=== PATIENT | male | born 1945 | race Caucasian/White ===

== ENCOUNTER 2021-06-05 10:04 | Inpatient (IN) | payer MEDICARE ==
[2021-06-05 10:15] LABS: Glucose,Whole Blood 155 mg/dL (75-99)
[2021-06-05] MEDS ORDERED: SODIUM CHLORIDE 0.9% 1,000 ML IV STA (10:18)
--- NOTE | 2021-06-05 10:22 | ED ---
General Adult HPI - General Chief complaint: Neuro Symptoms/Deficit Stated complaint: trouble speaking & gathering thoughts Time Seen by Provider: 06/05/21 10:13 Source: patient, family Mode of arrival: wheelchair Limitations: no limitations - History of Present Illness Initial comments: Dictation was produced using [employer] dictation software. please excuse any grammatical, word or spelling errors. Chief Complaint: 76-year-old male with past medical history of diabetes and hypertension presents emergency department for strokelike symptoms History of Present Illness: Patient is 68-year-old male who is brought in by his sister. Patient lives at home by himself. He talks his son every single morning. This morning son called him at around 8:30 AM and patient was found to be confused, aphasic and dysarthric. Sister went over to his house and brought patient to the emergency department. Patient lives at home alone. It is vague when patient was last normal given that he has not spoken to anybody. Patient told that he sounds confused and having trouble speaking. Patient has no symptoms of stroke. The ROS documented in this emergency department record has been reviewed and confirmed by me. Those systems with pertinent positive or negative responses have been documented in the HPI. All other systems are other negative and/or noncontributory. PHYSICAL EXAM: General Impression: Alert and oriented x3, not in acute distress HEENT: Normocephalic atraumatic, extra-ocular movements intact, pupils equal and reactive to light bilaterally, mucous membranes moist. Cardiovascular: Heart regular rate and rhythm Chest: Able to complete full sentences, no retractions, no tachypnea Abdomen: abdomen soft, non-tender, non-distended, no organomegaly Musculoskeletal: Pulses present and equal in all extremities, no peripheral edema Motor: no focal deficits noted Neurological: CN II-XII grossly intact, no focal motor or sensory deficits noted, very minimally aphasic, slightly dysarthric no facial droop, NIH of 2 Skin: Intact with no visualized rashes Psych: Normal affect and mood ED course: 76-year-old male presents to the emergency Department with mild strokelike symptoms. It is vague when patient's last known normal was because patient lives by himself. It's a system that patient woke up with symptoms like this. I Assume that patient's last known normal was sometime yesterday prior to going to bed tonight. Signs upon arrival are within acceptable limits. Point of care blood glucose is normal. NIH of 2 for mild dysarthria and mild aphasia. No extremity deficits. Patient not a candidate for TPA given low NIH score. Nonetheless code stroke page. EKG interpretation: Ventricular rate 72, normal sinus rhythm, [place] interval 164, QRS 80, QTc 451. No [place] prolongation, no QTC prolongation, no ST or T-wave changes noted. Overall, this EKG is unremarkable Case discussed with Dr. Robertson who does not recommend TPA administration. Laboratory evaluation obtained. CBC, coag panel, metabolic panel is within acceptable limits. CT brain and CT angios of the head and neck shows no stenoses or acute abnormalities. Chest x-ray is nonacute. However radiologist reports there is evidence of a nodular opacity at the right upper lobe is indeterminant. Patient has no respiratory symptoms whatsoever. Patient reevaluated at bedside at 11:50 AM on a be stable medical condition. Patient given aspirin. He is agreeable to admission for consultation to neurology. Patient's NIH is still 12. However his symptoms have not progressed. Patient began discussing his symptoms over the last several months of syncope. He was told that he feels faint and sometimes passes after he urinates. Cardiology will be consulted for post-micturition syncope. - Related Data Home Medications Medication Instructions Recorded Confirmed Acarbose [Precose] 25 mg PO AC-TID 06/05/21 06/05/21 Midodrine [ProAmatine] 2.5 mg PO Q12H 06/05/21 06/05/21 Omeprazole [PriLOSEC] 20 mg PO DAILY PRN 06/05/21 06/05/21 Sertraline [Zoloft] 25 mg PO DAILY 06/05/21 06/05/21 Allergies Allergy/AdvReac Type Severity Reaction Status Date / Time No Known Allergies Allergy Verified 06/05/21 10:04 Review of Systems ROS Statement: Those systems with pertinent positive or pertinent negative responses have been documented in the HPI. ROS Other: All systems not noted in ROS Statement are negative. Past Medical History Past Medical History: Diabetes Mellitus Additional Past Medical History / Comment(s): hypotension Past Surgical History: No Surgical Hx Reported Past Psychological History: Depression Smoking Status: Current every day smoker Past Alcohol Use History: Occasional Past Drug Use History: None Reported General Exam Limitations: no limitations Course Vital Signs 06/05/21 06/05/21 06/05/21 10:04 10:20 10:35 Temperature 98 F Pulse Rate 74 66 73 Respiratory 18 18 18 Rate Blood Pressure 165/87 168/76 163/83 O2 Sat by Pulse 97 95 95 Oximetry 06/05/21 06/05/21 06/05/21 10:45 11:00 11:15 Temperature Pulse Rate 68 70 68 Respiratory 24 18 22 Rate Blood Pressure 168/86 147/87 154/89 O2 Sat by Pulse 94 L 93 L 94 L Oximetry 06/05/21 11:35 Temperature Pulse Rate 67 Respiratory 18 Rate Blood Pressure 166/90 O2 Sat by Pulse 98 Oximetry Medical Decision Making - Lab Data Result diagrams: 06/05/21 10:30 06/05/21 10:30 Lab Results 06/05/21 06/05/21 06/05/21 Range/Units 10:12 10:30 10:30 WBC 6.9 (3.8-10.6) k/uL RBC 4.93 (4.30-5.90) m/uL Hgb 15.8 (13.0-17.5) gm/dL Hct 44.9 (39.0-53.0) % MCV 91.1 (80.0-100.0) fL MCH 32.0 (25.0-35.0) pg MCHC 35.2 (31.0-37.0) g/dL RDW 12.5 (11.5-15.5) % Plt Count 163 (150-450) k/uL MPV 7.1 Neutrophils % 84 % Lymphocytes % 8 % Monocytes % 7 % Eosinophils % 1 % Basophils % 0 % Neutrophils # 5.7 (1.3-7.7) k/uL Lymphocytes # 0.5 L (1.0-4.8) k/uL Monocytes # 0.5 (0-1.0) k/uL Eosinophils # 0.1 (0-0.7) k/uL Basophils # 0.0 (0-0.2) k/uL PT 10.7 (9.0-12.0) sec INR 1.0 (<1.2) APTT 22.4 (22.0-30.0) sec Sodium (137-145) mmol/L Potassium (3.5-5.1) mmol/L Chloride (98-107) mmol/L Carbon Dioxide (22-30) mmol/L Anion Gap mmol/L BUN (9-20) mg/dL Creatinine (0.66-1.25) mg/dL Est GFR (CKD-EPI)AfAm (>60 ml/min/1.73 sqM) Est GFR (CKD-EPI)NonAf (>60 ml/min/1.73 sqM) Glucose (74-99) mg/dL POC Glucose (mg/dL) 155 H (75-99) mg/dL POC Glu Combatant Swimmer ID Torsten Benson Calcium (8.4-10.2) mg/dL Total Bilirubin (0.2-1.3) mg/dL AST (17-59) U/L ALT (4-49) U/L Alkaline Phosphatase (38-126) U/L Troponin I (0.000-0.034) ng/mL Total Protein (6.3-8.2) g/dL Albumin (3.5-5.0) g/dL 06/05/21 06/05/21 Range/Units 10:30 10:30 WBC (3.8-10.6) k/uL RBC (4.30-5.90) m/uL Hgb (13.0-17.5) gm/dL Hct (39.0-53.0) % MCV (80.0-100.0) fL MCH (25.0-35.0) pg MCHC (31.0-37.0) g/dL RDW (11.5-15.5) % Plt Count (150-450) k/uL MPV Neutrophils % % Lymphocytes % % Monocytes % % Eosinophils % % Basophils % % Neutrophils # (1.3-7.7) k/uL Lymphocytes # (1.0-4.8) k/uL Monocytes # (0-1.0) k/uL Eosinophils # (0-0.7) k/uL Basophils # (0-0.2) k/uL PT (9.0-12.0) sec INR (<1.2) APTT (22.0-30.0) sec Sodium 132 L (137-145) mmol/L Potassium 3.9 (3.5-5.1) mmol/L Chloride 100 (98-107) mmol/L Carbon Dioxide 23 (22-30) mmol/L Anion Gap 9 mmol/L BUN 13 (9-20) mg/dL Creatinine 0.88 (0.66-1.25) mg/dL Est GFR (CKD-EPI)AfAm >90 (>60 ml/min/1.73 sqM) Est GFR (CKD-EPI)NonAf 83 (>60 ml/min/1.73 sqM) Glucose 164 H (74-99) mg/dL POC Glucose (mg/dL) (75-99) mg/dL POC Glu Combatant Swimmer ID Calcium 9.0 (8.4-10.2) mg/dL Total Bilirubin 0.6 (0.2-1.3) mg/dL AST 29 (17-59) U/L ALT 35 (4-49) U/L Alkaline Phosphatase 68 (38-126) U/L Troponin I <0.012 (0.000-0.034) ng/mL Total Protein 6.5 (6.3-8.2) g/dL Albumin 4.0 (3.5-5.0) g/dL Critical Care Time Critical Care Time: Yes Total Critical Care Time: 33 Disposition Clinical Impression: Cerebrovascular accident (CVA) Disposition: ADMITTED IP TO THIS HOSP Condition: Fair Referrals: Raj Kaur MD [Primary Care Provider] - 1-2 days
--- NOTE | 2021-06-05 10:40 | CT ---
EXAMINATION TYPE: CT brain wo con for TPA DATE OF EXAM: 06/05/2021 COMPARISON: None HISTORY: CODE STROKE CT DLP: Not available at time of entry mGycm Unenhanced CT of the brain was performed. The ventricles, basal cisterns and sulci overlying the cerebral convexities demonstrate mild enlargem ent. There is no evidence for intracranial hemorrhage or sulcal effacement. There is decreased attenuation about the periventricular white matter and deep white matter of both c erebral hemispheres, compatible with chronic small vessel ischemia. Differential diagnosis does inclu de demyelination. No mass effects are seen.No midline shift. Osseous calvarium is intact. If symptoms persist consider MRI. IMPRESSION: 1. Age related atrophic and chronic small vessel ischemic change without acute intracranial process s een at this time.
[2021-06-05 10:43] LABS: Basophils % (A) 0 %; Eosinophils # (A) 0.1 k/uL (0-0.7); Eosinophils % (A) 1 %; HCT 44.9 % (39.0-53.0); HGB 15.8 gm/dL (13.0-17.5); Lymphocytes # (A) 0.5 k/uL (1.0-4.8); Lymphocytes % (A) 8 %; MCHC 35.2 g/dL (31.0-37.0); MCV 91.1 fL (80.0-100.0); Mean Platelet Volume 7.1; Monocytes # (A) 0.5 k/uL (0-1.0); Monocytes % (A) 7 %; Neutrophils # (A) 5.7 k/uL (1.3-7.7); Neutrophils % (A) 84 %; Platelet Count 163 k/uL (150-450); RBC 4.93 m/uL (4.30-5.90); RDW 12.5 % (11.5-15.5); WBC 6.9 k/uL (3.8-10.6)
--- NOTE | 2021-06-05 10:53 | CT ---
EXAMINATION TYPE: CT angio head neck DATE OF EXAM: 06/05/2021 COMPARISON: None HISTORY: Episode of inability to talk. CT DLP: 608.2 mGycm CONTRAST: Performed with IV Contrast, patient injected with 65 mL of Isovue 370. Combination Contrast CTA cervical carotids and [place] CTA cervical carotids with 3-D recons truction Contrast CTA of the cervical carotids was performed 3-D reconstruction imaging obtained at a separate workstation. Right carotid system: Mild plaque is seen of the right common carotid artery. There is mild plaque a lso noted at the carotid bulb and proximal ICA. No significant diameter reduction. ECA is patent. Right vertebral artery appears unremarkable. Left carotid system: Mild plaque is seen of the left common carotid artery. There is mild plaque als o noted at the carotid bulb and proximal ICA. No significant diameter reduction. ECA is patent. Lef t vertebral artery appears unremarkable. IMPRESSION: 1. No significant diameter reduction to account for the patient's symptoms. CTA [place] with 3-D reconstruction Contrast CTA of the [place] was performed 3-D reconstruction imaging obtained at a separate workstation. Vertebrobasilar system as well as intracranial portions of the internal carotid arteries and their ma juan carlos tributaries are patent. I do not see evidence for sizable aneurysm or vascular malformation. Pl ease note MRI provides greater sensitivity and specificity. Visualized brain appears grossly unremar kable. IMPRESSION: 1. No significant abnormality.
[2021-06-05 10:55] LABS: ALT 35 U/L (4-49); AST 29 U/L (17-59); African American GFR (CKD) >90 (>60 ml/min/1.73 sqM); Alkaline Phosphatase 68 U/L (38-126); Anion Gap 9 mmol/L; Blood Urea Nitrogen 13 mg/dL (9-20); Carbon Dioxide 23 mmol/L (22-30); Chloride 100 mmol/L (98-107); Glucose 164 mg/dL (74-99); Non-African American GFR(CKD) 83 (>60 ml/min/1.73 sqM); Potassium 3.9 mmol/L (3.5-5.1); Sodium 132 mmol/L (137-145); Total Bilirubin 0.6 mg/dL (0.2-1.3); Total Protein 6.5 g/dL (6.3-8.2)
[2021-06-05 11:00] LABS: Partial Thromboplastin Time 22.4 sec (22.0-30.0); Prothrombin Time 10.7 sec (9.0-12.0)
[2021-06-05] MEDS ORDERED: ASPIRIN 81 MG PO STA (11:47)
--- NOTE | 2021-06-05 11:50 | XR ---
EXAMINATION TYPE: XR chest 2V DATE OF EXAM: 06/05/2021 COMPARISON: None HISTORY: Altered mental status, difficulty speaking and gatherings TECHNIQUE: Frontal and lateral views of the chest are obtained. FINDINGS: Heart size is within normal limits. Overlying leads. Peribronchial cuffing. No pleural eff usion or pneumothorax. There are coarse interstitial markings. There is a nodular opacity at the righ t upper lobe. A CT may be helpful for further evaluation. Hyperaeration lungs and flattening of the d iaphragms suggestive of COPD. Degenerative changes of the thoracic spine. IMPRESSION: 1. COPD. Coarse interstitial markings may be chronic but prior comparison is not available. 2. There is nodular opacity at the right upper lobe which is indeterminate. A CT of the chest would b e helpful for evaluation. Underlying neoplasm is not excluded. 3. peribronchial cuffing. Consider bronchitis.
[2021-06-05] MEDS: lisinopriL 10 MG TAB PO SCH (14:11)
[2021-06-05] MEDS: SODIUM CHLORIDE 0.9% 1,000 ML IV SCH (14:44)
[2021-06-05] MEDS: ALPRAZolam 0.25 MG TAB PO PRN (19:08)
[2021-06-05] MEDS: ATORVASTATIN 40 MG TAB PO SCH (20:37)
[2021-06-05] MEDS: FAMOTIDINE 20 MG/2 ML VIAL IV SCH (20:37)
[2021-06-06] MEDS: ALPRAZolam 0.25 MG TAB PO PRN ×3 (02:07→20:29)
[2021-06-06 06:07] LABS: Glucose,Whole Blood 100 mg/dL (75-99)
[2021-06-06] MEDS: INSULIN ASPART (NovoLOG) 100 UNIT/ML VIAL SQ SCH ×4 (06:33→20:27)
--- NOTE | 2021-06-06 08:12 | P.CRDCN ---
History of Present Illness Consult date: 06/06/21 History of present illness: HISTORY OF PRESENT ILLNESS: This is a 76-year-old male with a past medical history significant for hypotension, GERD, and depression. 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 We have been asked to see the patient in consultation for syncope. Patient examined at the bedside. Patient states history morning he was in his usual state of health. He was on the phone with his son when suddenly he began having garbled speech. Patient denies having any weakness in any of his extremities. He denies any vision changes. Patient's son called the patient's daughter who came over to his house and brought him into the hospital for further evaluation. At the time of examination, the patient's speech is back to his baseline. Patient denies any chest pain or pressure. He denies shortness of breath. He denies any dizziness or lightheadedness. Patient gives a history of dizziness and lightheadedness on occasion over the past 6 months. He states this happens when he is going from a supine position to a standing position. He states about a month ago he had gotten out of bed and walk to the bathroom to urinate and he passed out and landed on the floor. Patient states he was hospitalized approximately 23 weeks ago at another facility for hypotension and was started on Midodrine at that time. Blood pressure this morning 131/69. Heart rate is in the 60s. EKG reveals sinus mechanism with no signs of acute ischemia Chest xray COPD. Coarse interstitial markings may be chronic but prior comparison is not available. Nodular opacities at the right upper lobe which is indeterminate. CT of the brain: Age-related atrophic and chronic small vessel ischemic changes without acute intracranial process Laboratory data: WBC 6.9. Hemoglobin 15.8. Platelet count 163. Sodium 132. Potassium 3.9. BUN 13. Creatinine 0.88. Troponin negative 1. Current home cardiac medications include Midodrine 2.5mg q12 hours REVIEW OF SYSTEMS: At the time of my exam: CONSTITUTIONAL: Denies fever or chills. HEENT: Denies blurred vision, vision changes, or eye pain. Denies hemoptysis CARDIOVASCULAR: Denies chest pain. Denies orthopnea. Denies PND. Denies palpitations RESPIRATORY: Denies shortness of breath. GASTROINTESTINAL: Denies abdominal pain. Denies nausea or vomiting. HEMATOLOGIC: Denies bleeding disorders. GENITOURINARY: Denies any blood in urine. SKIN: Denies pruitis. Denies rash. PHYSICAL EXAM: VITAL SIGNS: Reviewed. GENERAL: Well-developed in no acute distress. HEENT: Head is normocephalic. Pupils are equal, round. Sclerae anicteric. Mucous membranes of the mouth are moist. Neck supple. No JVD or thyromegaly LUNGS: Respirations even and unlabored. Lungs essentially clear to auscultation bilaterally. HEART: Regular rate and rhythm. S1 and S2 heard. ABDOMEN: Soft. Nondistended. Nontender. EXTREMITIES: Normal range of motion. No clubbing or cyanosis. Peripheral pulses intact. No lower extremity edema NEUROLOGIC: Awake and alert. Oriented x 3. ASSESSMENT: Garbled speech, possible TIA, resolved Syncope with occasional dizziness, x 6 months Hypotension, recently started on Midodrine GERD Depression PLAN: Obtain 2D echo to assess cardiac structure and function Resume Midodrine. Hold for SBP greater than 140. Obtain orthostatic blood pressures Continue to monitor telemetry Further recommendations pending patient's course Nurse practitioner note has been reviewed by physician. Signing provider agrees with the documented findings, assessment, and plan of care. Past Medical History Past Medical History: Diabetes Mellitus Additional Past Medical History / Comment(s): hypotension- couple weeks ago History of Any Multi-Drug Resistant Organisms: None Reported Past Surgical History: No Surgical Hx Reported Past Anesthesia/Blood Transfusion Reactions: No Reported Reaction Past Psychological History: Anxiety, Depression Additional Psychological History / Comment(s): zoloft last two weeks, doesn't think it is helping enough. lots of anxiety related to fear of falling. Smoking Status: Never smoker Past Alcohol Use History: None Reported Past Drug Use History: None Reported Medications and Allergies Home Medications Medication Instructions Recorded Confirmed Type Midodrine [ProAmatine] 2.5 mg PO Q12H 06/05/21 06/05/21 History Omeprazole [PriLOSEC] 20 mg PO DAILY PRN 06/05/21 06/05/21 History Sertraline [Zoloft] 25 mg PO DAILY 06/05/21 06/05/21 History Allergies Allergy/AdvReac Type Severity Reaction Status Date / Time No Known Allergies Allergy Verified 06/05/21 10:04 Physical Exam Vitals: Vital Signs Temp Pulse Pulse Resp BP BP Pulse Ox 06/06/21 04:00 97 F L 66 17 131/69 94 L 06/06/21 02:00 66 17 06/06/21 00:00 97.7 F 61 16 162/81 94 L 06/05/21 20:00 98.0 F 62 18 177/90 96 06/05/21 15:01 68 18 152/83 95 06/05/21 15:00 68 18 06/05/21 13:45 64 18 161/85 94 L 06/05/21 13:15 63 24 164/110 94 L 06/05/21 12:45 68 22 173/96 94 L 06/05/21 12:30 67 21 154/87 95 06/05/21 12:15 64 22 154/87 94 L 06/05/21 12:00 67 18 166/90 93 L 06/05/21 11:45 69 16 166/90 93 L 06/05/21 11:35 67 18 166/90 98 06/05/21 11:15 68 22 154/89 94 L 06/05/21 11:00 70 18 147/87 93 L 06/05/21 10:45 68 24 168/86 94 L 06/05/21 10:35 73 18 163/83 95 06/05/21 10:20 66 18 168/76 95 06/05/21 10:04 98 F 74 18 165/87 97 Intake and Output 06/05/21 06/06/21 06/06/21 22:59 06:59 14:59 Other: Voiding Method Toilet Toilet # Voids 1 2 Weight 85.5 kg 84.1 kg Results 06/05/21 10:30 06/05/21 10:30 Cardiac Enzymes 06/05/21 06/05/21 Range/Units 10:30 10:30 AST 29 (17-59) U/L Troponin I <0.012 (0.000-0.034) ng/mL Coagulation 06/05/21 Range/Units 10:30 PT 10.7 (9.0-12.0) sec APTT 22.4 (22.0-30.0) sec CBC 06/05/21 Range/Units 10:30 WBC 6.9 (3.8-10.6) k/uL RBC 4.93 (4.30-5.90) m/uL Hgb 15.8 (13.0-17.5) gm/dL Hct 44.9 (39.0-53.0) % Plt Count 163 (150-450) k/uL Comprehensive Metabolic Panel 06/05/21 Range/Units 10:30 Sodium 132 L (137-145) mmol/L Potassium 3.9 (3.5-5.1) mmol/L Chloride 100 (98-107) mmol/L Carbon Dioxide 23 (22-30) mmol/L BUN 13 (9-20) mg/dL Creatinine 0.88 (0.66-1.25) mg/dL Glucose 164 H (74-99) mg/dL Calcium 9.0 (8.4-10.2) mg/dL AST 29 (17-59) U/L ALT 35 (4-49) U/L Alkaline Phosphatase 68 (38-126) U/L Total Protein 6.5 (6.3-8.2) g/dL Albumin 4.0 (3.5-5.0) g/dL Current Medications Generic Name Dose Route Start Last Admin Trade Name Freq PRN Reason Stop Dose Admin Alprazolam 0.25 mg 06/05/21 18:15 06/06/21 02:07 Alprazolam 0.25 Mg Tab PO 0.25 mg TID PRN Administration Anxiety Atorvastatin Calcium 40 mg 06/05/21 21:00 06/05/21 20:37 Atorvastatin 40 Mg Tab PO 40 mg HS ANI Administration Famotidine 20 mg 06/05/21 21:00 06/05/21 20:37 Famotidine 20 Mg/2 Ml Vial IV Not Given Q12HR ANI Sodium Chloride 1,000 mls @ 20 mls/hr 06/05/21 12:00 06/05/21 14:44 Saline 0.9% IV Not Given .Q24H ANI Insulin Aspart 0 unit 06/06/21 07:30 06/06/21 06:33 Insulin Aspart (Novolog) 100 Unit/Ml Vial SQ Not Given ACHS ANI Protocol Intake and Output 06/05/21 06/06/21 06/06/21 22:59 06:59 14:59 Other: Voiding Method Toilet Toilet # Voids 1 2 Weight 85.5 kg 84.1 kg 06/05/21 10:30 06/05/21 10:30
[2021-06-06] MEDS: FAMOTIDINE 20 MG/2 ML VIAL IV SCH ×2 (09:39→20:26)
[2021-06-06] MEDS ORDERED: PANTOPRAZOLE 40 MG TABLET PO PRN (10:30)
--- NOTE | 2021-06-06 10:56 | ECHOF ---
Referral Reason:cva MEASUREMENTS -------- HEIGHT: 180.3 cm WEIGHT: 86.2 kg BP: RVIDd: 2.6 cm (< 3.3) IVSd: 1.0 cm (0.6 - 1.1) LVIDd: 4.1 cm (3.9 - 5.3) LVPWd: 1.2 cm (0.6 - 1.1) IVSs: 1.5 cm LVIDs: 1.7 cm LVPWs: 1.7 cm Ao Diam: 3.1 cm (2.0 - 3.7) AV Cusp: 2.1 cm (1.5 - 2.6) LA Diam: 3.0 cm (2.7 - 3.8) MV EXCURSION: 11.800 mm (> 18.000) MV EF SLOPE: 47 mm/s (70 - 150) EPSS: 0.6 cm MV E Pierre: 0.60 m/s MV DecT: 332 ms MV A Pierre: 0.88 m/s MV E/A Ratio: 0.69 AR PHT: 1968 ms RAP: 5.00 mmHg RVSP: 10.41 mmHg FINDINGS -------- This was a technically difficult study with suboptimal views. The left ventricular size is normal. Left ventricular wall thickness is normal. Overall left vent ricular systolic function is normal with, an EF between 55 - 60 %. The right ventricle is normal in size. The left atrial size is normal. The right atrial size is normal. Lumason used Unable to visualize the septum. The aortic valve is trileaflet and appears structurally normal. There is mild aortic regurgitation. The mitral valve is normal. The mitral valve leaflets are mildly thickened. Mild mitral regurgita tion is present. The tricuspid valve appears structurally normal. Mild tricuspid regurgitation present. Right vent ricular systolic pressure is normal at < 35 mmHg. There is no pulmonic regurgitation present. The aortic root size is normal. IVC Not well visulized. There is no pericardial effusion. CONCLUSIONS -------- 1. The left ventricular size is normal. 2. Left ventricular wall thickness is normal. 3. Overall left ventricular systolic function is normal with, an EF between 55 - 60 %. 4. There is mild aortic regurgitation. 5. The mitral valve leaflets are mildly thickened. 6. Mild mitral regurgitation is present. 7. Mild tricuspid regurgitation present. 8. There is no pericardial effusion. SAXOPHONE PLAYER: Cee Thurston RDCS
[2021-06-06] MEDS: MIDODRINE 5 MG TAB PO SCH ×3 (11:27→20:25)
--- NOTE | 2021-06-06 11:38 | P.HPIM ---
History of Present Illness H&P Date: 06/05/21 Chief Complaint: Dysarthria, This is a 76-year-old pleasant gentleman patient of Dr. Kaur, with underlying history of diabetes hypertension, coming in to emergency room secondary to acute strokelike symptoms. Patient lives alone at home independent, for which family members is in close by assistance, according to family members, the son called him at around 8:30 in the morning, and patient was found to have difficulty in speaking, has speech arrest. and was confused. The sister went to the patient's house, and was brought in by the family members to the emergency room. It is unknown when the last normal neurologic symptoms was of the patient, patient denies any headache, no head trauma, no cough, no fever no chills, patient does not drink alcohol, no new medication changes by PCP. apparently he had a syncopal event 2.5 wks ago, at that time bp was 65/35 standing, his pcp started him on midodrin. pt has hyperglycemia, was suppose to have started on acarbose but did not get to start it, pt refused. pateint was not on routine asa at home, not on statin, patient quit statin long time ago He was seen in the emergency room with code stroke, it was discussed with neurology, Dr. Robertson with the ER physician, who does not recommend TPA administration. CT of the brain and CTA of the neck was done, has mild plaques on bilateral, and and internal carotid artery, patent left vertebral artery, no significant diameter reduction to account for patient's symptoms CT of the brain shows chronic small vessel ischemia without any acute changes. NIH score was 2 patient is admitted, consult PT OT, neurology, pt was seen in the er myself, now with spontaneous rapid speech, no dysarrthria has memory loss short term, and no diplopia or headache, no gross motor abnormalities, no seizure history as per patient, he has lowering of blood pressure whenever he eats, but he did not really realize that is related to standing position rather than full. There is no diarrhea, no stool or urine incontinence, Review of Systems Constitutional: Reports as per HPI, Denies anorexia, Denies chills, Denies chronic headaches, Denies chronic pain, Denies daytime sleepiness, Denies fatigue, Denies fever, Denies lethargy, Denies malaise, Denies night sweats, Denies poor appetite, Denies sweats, Denies weakness, Denies weight gain, Denies weight loss Ears, nose, mouth and throat: Reports as per HPI, Denies ant. neck pain, Denies bleeding gums, Denies dental pain, Denies dysphagia, Denies epistaxis, Denies headache, Denies hoarseness, Denies mouth pain, Denies nasal congestion, Denies nasal discharge, Denies neck fullness/pressure, Denies neck lump, Denies nose pain, Denies odynophagia, Denies post-nasal drip, Denies sinus pain, Denies sinus pressure, Denies swelling in mouth, Denies swelling in throat, Denies sore throat, Denies vertigo, Denies voice changes Cardiovascular: Reports as per HPI, Denies chest pain, Denies claudication, Denies decreased exercise tolerance, Denies dyspnea on exertion, Denies edema, Denies high blood pressure, Denies irregular heart beat, Denies leg edema, Denies lightheadedness, Denies orthopnea, Denies palpitations, Denies paroxysmal nocturnal dyspnea, Denies phlebitis, Denies rapid heart beat, Denies shortness of breath, Denies syncope Respiratory: Reports as per HPI, Denies congestion, Denies cough, Denies cough with sputum, Denies dyspnea, Denies excessive sputum, Denies hemoptysis, Denies home oxygen, Denies pain, Denies pain on inspiration, Denies pleurisy, Denies respiratory infections, Denies sleep apnea, Denies snoring, Denies wheezing Gastrointestinal: Reports as per HPI, Denies coffee ground emesis, Denies diarrhea, Denies dyspepsia, Denies early satiety, Denies hematemesis, Denies hematochezia, Denies indigestion Genitourinary: Reports as per HPI, Denies hematuria, Denies incontinence, Denies kidney stones, Denies nocturia, Denies urinary frequency, Denies urinary hesitancy Musculoskeletal: Reports as per HPI, Denies arm numbness/tingling, Denies gait dysfunction, Denies limitation of motion, Denies muscle weakness Integumentary: Reports as per HPI Neurological: Reports as per HPI, Reports aphasia, Reports confusion, Reports memory loss Psychiatric: Reports confusion, Reports disorientation, Denies insomnia, Denies mood swings, Denies sleep disturbances Endocrine: Denies excessive sweating, Denies excessive thirst, Denies flushing, Denies high blood sugars, Denies low blood sugars, Denies nocturia Hematologic/Lymphatic: Reports as per HPI, Denies easy bleeding, Denies easy br uising, Denies lymphadenopathy, Denies lymphedema, Denies thrombophilia Allergic/Immunologic: Reports as per HPI, Denies allergic rhinitis, Denies anaphylaxis, Denies angioedema, Denies gluten intolerance, Denies persistent infections, Denies seasonal allergies, Denies urticaria, Denies wheezing Past Medical History Past Medical History: Diabetes Mellitus Additional Past Medical History / Comment(s): hypotension Past Surgical History: No Surgical Hx Reported Past Psychological History: Depression Smoking Status: Current every day smoker Past Alcohol Use History: Occasional Past Drug Use History: None Reported Medications and Allergies Home Medications Medication Instructions Recorded Confirmed Type Midodrine [ProAmatine] 2.5 mg PO Q12H 06/05/21 06/05/21 History Omeprazole [PriLOSEC] 20 mg PO DAILY PRN 06/05/21 06/05/21 History Sertraline [Zoloft] 25 mg PO DAILY 06/05/21 06/05/21 History Allergies Allergy/AdvReac Type Severity Reaction Status Date / Time No Known Allergies Allergy Verified 06/05/21 10:04 Physical Exam Vitals: Vital Signs Temp Pulse Resp BP Pulse Ox 06/05/21 11:35 67 18 166/90 98 06/05/21 11:15 68 22 154/89 94 L 06/05/21 11:00 70 18 147/87 93 L 06/05/21 10:45 68 24 168/86 94 L 06/05/21 10:35 73 18 163/83 95 06/05/21 10:20 66 18 168/76 95 06/05/21 10:04 98 F 74 18 165/87 97 Intake and Output 06/04/21 06/05/21 06/05/21 22:59 06:59 14:59 Other: Weight 86.183 kg - Constitutional General appearance: cooperative, no acute distress - EENT Eyes: anicteric sclerae, EOMI, PERRLA - Neck Neck: normal ROM - Respiratory Respiratory: bilateral: CTA, negative: diminished, dullness, rales - Cardiovascular Rhythm: regular Heart sounds: normal: S1, S2 Abnormal Heart Sounds: no systolic murmur, no diastolic murmur, no rub, no S3 Gallop, no S4 Gallop, no click, no other - Gastrointestinal General gastrointestinal: normal bowel sounds, soft - Integumentary Integumentary: decreased turgor, normal - Neurologic Neurologic: CNII-XII intact, focal deficits (none) - Musculoskeletal Musculoskeletal: gait normal, strength equal bilaterally - Psychiatric Psychiatric: A&O x's 3, appropriate affect, intact judgment & insight Results CBC & Chem 7: 06/05/21 10:30 06/05/21 10:30 Labs: Abnormal Lab Results - Last 24 Hours (Table) 06/05/21 06/05/21 06/05/21 Range/Units 10:12 10:30 10:30 Lymphocytes # 0.5 L (1.0-4.8) k/uL Sodium 132 L (137-145) mmol/L Glucose 164 H (74-99) mg/dL POC Glucose (mg/dL) 155 H (75-99) mg/dL Assessment and Plan Plan: 1 Acute dysarthria with confusion disorientation, suspect acute neurologic event, TIA, IND against CVA, patient will be seen by neurology, aspirin, might need SILVIA for cryptogenic stroke,, schedule for MRI of the brain, CTA neck carotids, negative for hemodynamically significant stenosis start cholesterol, Lipitor 40, aspirin 325 mg daily, and lipid panel start low-dose chad, this Li sinopril 10 mg needs to leave blood pressure on the antihypertensive site to protect neurovascular circulation, 2. Neurocardiogenic syncope without anomic dysfunction, with significant blood pressure dropped during standing, causing a recent syncope 2 weeks ago. Patient increased stool Midodrine 10 mg 3 times a day pre-meals, consult cardiology, for full workup, neurology workup, to evaluate for Parkinson's, need telemetry monitoring post discharge, 4 at her today event, against a loop recorder, for syncope with bradycardia arrhythmia sick sinus syndrome against pauses 3. Diabetes mellitus on acarbose 25 3 times a day apparently patient had quit this, as he refused to take the medication 4. Dysthymia on Zoloft 5. Current tobacco use 6. Hypertension, not on any Chad inhibition, has history of hypertension we will start low dose chad check for lipid panel n 8 impaired balance and gait, with fear of falling, start PT OT neurology workup, to evaluate for Parkinson's gait abnormality 7. Dysthymia on Zoloft
[2021-06-06 12:28] LABS: Glucose,Whole Blood 96 mg/dL (75-99)
[2021-06-06] MEDS: SERTRALINE 25 MG TAB PO SCH (12:42)
[2021-06-06] MEDS: PIOGLITAZONE 15 MG TAB PO SCH (12:43)
--- NOTE | 2021-06-06 12:51 | P.CNNES ---
History of Present Illness Consult date: 06/06/21 Requesting physician: Speedy Yates Reason for Consult: stroke symptoms History of Present Illness: This is a 76-year-old gentleman with medical history of hypotension, GERD and depression who presented emergency department on 06/05/2021 for strokelike symptoms. On 06/05/2021 patient called his son around 8:30 in the morning and per patient he had difficulty getting his words out. He said that he knew what he wanted to say but just had difficulty getting out. He denies any slurring of the speech at the presentation. Denies of any focal weakness, numbness/tingling, visual disturbance, difficulty swallowing. He denies of any headaches at that time. Denies of any fever. He denies of any strokelike symptoms in the past. Per the ED note, the son felt like the patient was confused, garbled speech while talking to him on phone. The patient lives by himself. His sister came and too him to the hospital. Patient felt his symptoms lasted for close to 2 hours. Again he denies of any stroke in the past. He denies of tobacco use and said in the past he used to drink alcohol but stopped years ago. Patient stated about a month ago he passed out when the he got out of bed to walk to the bathroom to urinate and landed on the floor. He was hospitalized for 2-3 weeks at a different facility for hypotension and was started on Midodrine at that time. He was hospitalized at [facility]. Patient denies of seizure in past. Patient home medication includes midodrine 2.5 mg every 12 hours, omeprazole and Zoloft. Some of the workup in the hospital consisted of: Initial vital signs: Blood pressure of 155/87, heart rate of 74, respiratory of 18, temperature of 98.0 Fahrenheit and pulse ox of 97% at room air. Patient had orthostatic vitals and the patient the supine blood pressure is 161/78, sitting is 159/83 and standing is 87/59. His orthostatics are positive for the orthostatic hypotension. CT of the head is reported as age-related atrophic and chronic small vessel ischemic change without acute intracranial process seen at this time. CT angiography of the head and neck was reported as no significant abnormality. EKG is reported as normal sinus rhythm. Normal EKG. CBC with differential is unremarkable. While chemistry panel the POC glucose is 1 5540 slowly elevated sodium is 1:30 which is slightly low otherwise the rest of the chemistry panel is unremarkable. Stroke code was activated and the patient NIH was 1-2 (mild dysarthria and aphasia) and per the ED note it has not progressed. And the the stroke attending Dr. Waller did not recommend that TPA. Review of Systems Review of system: The 12 point system was reviewed and apparent positive and negative per HPI. Past Medical History Past Medical History: Diabetes Mellitus Additional Past Medical History / Comment(s): hypotension- couple weeks ago History of Any Multi-Drug Resistant Organisms: None Reported Past Surgical History: No Surgical Hx Reported Past Anesthesia/Blood Transfusion Reactions: No Reported Reaction Past Psychological History: Anxiety, Depression Additional Psychological History / Comment(s): zoloft last two weeks, doesn't think it is helping enough. lots of anxiety related to fear of falling. Smoking Status: Never smoker Past Alcohol Use History: None Reported Past Drug Use History: None Reported Medications and Allergies Home Medications Medication Instructions Recorded Confirmed Type Midodrine [ProAmatine] 2.5 mg PO Q12H 06/05/21 06/05/21 History Omeprazole [PriLOSEC] 20 mg PO DAILY PRN 06/05/21 06/05/21 History Sertraline [Zoloft] 25 mg PO DAILY 06/05/21 06/05/21 History Allergies Allergy/AdvReac Type Severity Reaction Status Date / Time No Known Allergies Allergy Verified 06/05/21 10:04 Physical Examination - Vital Signs Vital Signs: Vital Signs Temp Pulse Pulse Resp BP BP Pulse Ox 06/06/21 09:09 94 L 06/06/21 08:00 97.5 F L 59 L 17 129/70 94 L 06/06/21 04:00 97 F L 66 17 131/69 94 L 06/06/21 02:00 66 17 06/06/21 00:00 97.7 F 61 16 162/81 94 L 06/05/21 20:00 98.0 F 62 18 177/90 96 06/05/21 15:01 68 18 152/83 95 06/05/21 15:00 68 18 06/05/21 13:45 64 18 161/85 94 L 06/05/21 13:15 63 24 164/110 94 L 06/05/21 12:45 68 22 173/96 94 L 06/05/21 12:30 67 21 154/87 95 06/05/21 12:15 64 22 154/87 94 L 06/05/21 12:00 67 18 166/90 93 L 06/05/21 11:45 69 16 166/90 93 L 06/05/21 11:35 67 18 166/90 98 06/05/21 11:15 68 22 154/89 94 L 06/05/21 11:00 70 18 147/87 93 L Intake and Output 06/05/21 06/06/21 06/06/21 22:59 06:59 14:59 Intake Total 180 Balance 180 Intake: Oral 180 Other: Voiding Method Toilet Toilet # Voids 1 2 Weight 85.5 kg 84.1 kg GENERAL: The patient is lying in bed and is not in acute distress. CHEST: The heart rate is regular rate rhythm. No murmurs to auscultation. No carotid bruit bilaterally. LUNG: Clear to auscultation bilaterally no wheezing noted throughout. Not labored breathing. ABDOMEN/GI: Bowel sounds present in all 4 quadrants. No tenderness to palpation throughout. NEUROLOGICAL: Higher mental function: The patient is awake, alert, oriented to self, place and time. Patient is following commands. No aphasia and no neglect. Cranial nerves: The pupils are round, equal and reactive to light and accommodation. Visual orozco are full to confrontation throughout. Extraocular movement is intact no nystagmus is noted. Facial sensation is normal to touch throughout. The facial strength is normal throughout. Hearing is normal bilaterally to hand rub. Tongue is midline and moved [id number] without any difficulty. No dysarthria is noted. Shoulder shrug is normal bilaterally. Motor: Gait is taking cautious steps but walking otherwise normal with normal arm swings. The strength is 5 over 5 throughout. Normal tone and bulk. Cerebellum: Normal finger to nose heel to persaud bilaterally. Sensation: Sensation is normal to touch throughout. Reflexes (right/left): 2+ Plantars are downgoing bilaterally. Results - Laboratory Findings CBC and BMP: 06/05/21 10:30 06/05/21 10:30 Abnormal Lab Findings: Abnormal Labs 06/05/21 06/05/21 06/05/21 10:12 10:30 10:30 Lymphocytes # 0.5 L Sodium 132 L Glucose 164 H POC Glucose (mg/dL) 155 H 06/06/21 06:06 Lymphocytes # Sodium Glucose POC Glucose (mg/dL) 100 H Assessment and Plan Assessment: Acute transient broca aphasia (per ED had aphasia and dysarthria): Seems likely Transient ischemic attack (TIA) Orthostatic hypotension on midodrine (on current vitals has positive orthostatics) Depression GERD Plan: MRI the brain, 2-D echo, lipid panel, hemoglobin A1c are ordered and pending. PT, OT and [employer] are consulted. Patient the was given aspirin 324 milligram once in the ED. I started the patient on aspirin 81mg and Plavix 75 mg daily. Patient to be on dual antiplatelets for 21 days then after that stop Plavix and continue indefinitely on aspirin. Start the patient on Lipitor 40 mg daily at bedtime for secondary stroke prophylaxis. Every 4 hours neuro checks. On continuous cardiac monitoring Will consider EEG down the line if his blood pressure normalizes and continues to have syncopal episodes.Cardiology is on board for orthostatic hypotension. We'll defer the rest of the medical management to primary team. Thank you for the consultation. Sravan Rosario M.D. Neuro-hospitalist Time with Patient: Greater than 30
--- NOTE | 2021-06-06 14:03 | P.PN ---
Subjective Progress Note Date: 06/06/21 HISTORY OF PRESENT ILLNESS This is a 76-year-old pleasant gentleman patient of Dr. Kaur, with underlying history of diabetes hypertension, coming in to emergency room secondary to acute strokelike symptoms. Patient lives alone at home independent, for which family members is in close by assistance, according to family members, the son called him at around 8:30 in the morning, and patient was found to have difficulty in speaking, has speech arrest. and was confused. The sister went to the patient's house, and was brought in by the family members to the emergency room. It is unknown when the last normal neurologic symptoms was of the patient, patient denies any headache, no head trauma, no cough, no fever no chills, patient does not drink alcohol, no new medication changes by PCP. apparently he had a syncopal event 2.5 wks ago, at that time bp was 65/35 standing, his pcp started him on midodrin. pt has hyperglycemia, was suppose to have started on acarbose but did not get to start it, pt refused. pateint was not on routine asa at home, not on statin, patient quit statin long time ago He was seen in the emergency room with code stroke, it was discussed with n meron, Dr. Robertson with the ER physician, who does not recommend TPA administration. CT of the brain and CTA of the neck was done, has mild plaques on bilateral, and and internal carotid artery, patent left vertebral artery, no significant diameter reduction to account for patient's symptoms CT of the brain shows chronic small vessel ischemia without any acute changes. NIH score was 2 patient is admitted, consult PT OT, neurology, pt was seen in the er myself, now with spontaneous rapid speech, no dysarrthria has memory loss short term, and no diplopia or headache, no gross motor abnormalities, no seizure history as per patient, he has lowering of blood pressure whenever he eats, but he did not really realize that is related to standing position rather than full. There is no diarrhea, no stool or urine incontinence, 06/06: She has been seen by cardiology and resumed managing, hold for systolic blood pressure greater than 140. Orthostatic vital signs to be checked and continue cardiac monitoring. Echocardiogram reveals EF of 55-60%, mild aortic regurgitation, mild mitral regurgitation, mild tricuspid regurgitation. She has also been seen by neurology with plan for and MRI of the brain and possible EEG. Recommendations for aspirin 81 mg daily and Plavix 75 mg daily. Patient is to be on dual antiplatelet therapy for 21 days and then stop Plavix and continue indefinitely on aspirin. Patient is also been started on Lipitor 40 mg daily at bedtime for secondary stroke prophylaxis. Hemoglobin A1c is pending. Cortisol level this morning was 16. Patient verbalized depression and suicidal thoughts this morning has been resumed on Zoloft and consult placed with psychiatry. REVIEW OF SYSTEMS Constitutional: No fever, no chills, no night sweats. No weight change. No weakness, fatigue or lethargy. No daytime sleepiness. EENT: No headache. No blurred vision or double vision, no loss of vision. No loss of Hearing, no ringing in the ears, no dizziness. No nasal drainage or congestion. No epistaxis. No sore throat. Lungs: No shortness of breath, cough, no sputum production. No wheezing. Cardiovascular: No chest pain, no lower extremity edema. No palpitations. No paroxysmal nocturnal dyspnea. No orthopnea. No lightheadedness or dizziness. No syncopal episodes. Abdominal: No abdominal pain. No nausea, vomiting. No diarrhea. No constipation. No bloody or tarry stools.. No loss of appetite. Genitourinary: No dysuria, increased frequency, urgency. No urinary retention. Musculoskeletal: No myalgias. No muscle weakness, no gait dysfunction, no frequent falls. No back pain. No neck pain. Integumentary: No wounds, no lesions. No rash or pruritus. No unusual bruising. No change in hair or nails. Neurologic: No aphasia. No facial droop. No change in mentation. No head injury. No headache. No paralysis. No paresthesia. Psychiatric: Reports depression. No anxiety. Reports suicidal ideation Endocrine: No abnormal blood sugars. No weight change. No excessive sweating or thirst. No cold intolerance. PHYSICAL EXAMINATION Gen: This is a 76-year-old male. He is resting in bed and appears to be comfortable. HEENT: Head is atraumatic, normocephalic. Pupils equal, round. Sclerae is anicteric. NECK: Supple. No JVD. No lymphadenopathy. No thyromegaly. LUNGS: Clear to auscultation. No wheezes or rhonchi. No intercostal retractions. HEART: Regular rate and rhythm. No murmur. ABDOMEN: Soft. Bowel sounds are present. No masses. No tenderness. EXTREMITIES: No pedal edema. No calf tenderness. NEUROLOGICAL: Patient is awake, alert and oriented x3. Cranial nerves 2 through 12 are grossly intact. ASSESSMENT AND PLAN 1. Acute transient boca aphasia, TIA. Consult with neurology appreciated. Continue aspirin 81 mg daily and Plavix 75 mg daily for 21 days and then transition to aspirin indefinitely. Continue Lipitor 40 mg daily. Continue neuro checks, MRI of the brain ordered. 2. Neurocardiogenic syncope without anomic dysfunction, with significant blood pressure dropped during standing, causing a recent syncope 2 weeks ago. Cardio logy consult appreciated. Midodrine changed to twice daily with parameters to hold for high blood pressure readings.continue cardiac monitoring. 3. Diabetes mellitus type II. Continue on acarbose 25 3 times a day apparently patient had quit this, as he refused to take the medication 4. Dysthymia, recurrent depression with suicidal ideation. Patient continued on Zoloft 25 mg daily, psychiatry consult added. 5. Current tobacco use and dependence. 6. Hypertension. 7. impaired balance and gait, with fear of falling, start PT OT neurology workup, to evaluate for Parkinson's gait abnormality 8. GI prophylaxis. Protonix. 9. DVT prophylaxis. Early ambulation. DISCHARGE PLAN To be determined Impression and plan of care have been directed as dictated by the signing physician. Rhiannon Mars nurse practitioner acting as scribe for signing physician. Objective - Vital Signs Vital signs: Vital Signs Temp 98.8 F 06/06/21 11:57 Pulse 64 06/06/21 11:57 Resp 17 06/06/21 11:57 BP 159/83 06/06/21 11:57 Pulse Ox 94 L 06/06/21 11:57 Intake & Output 06/05/21 06/06/21 06/06/21 18:59 06:59 18:59 Intake Total 180 Balance 180 Weight 85.5 kg 84.1 kg Intake: Oral 180 Other: Voiding Method Toilet Toilet # Voids 2 - Labs CBC & Chem 7: 06/05/21 10:30 06/05/21 10:30 Labs: Abnormal Lab Results - Last 24 Hours (Table) 06/06/21 Range/Units 06:06 POC Glucose (mg/dL) 100 H (75-99) mg/dL
[2021-06-06 15:28] LABS: Chol/HDL Ratio 4.75; LDL Cholesterol,Calculated 124.2 mg/dL (0.0-131.0); VLDL Calculation 25.8 mg/dL (5.00-40.00)
[2021-06-06 16:41] LABS: Glucose,Whole Blood 151 mg/dL (75-99)
[2021-06-06] MEDS: CLOPIDOGREL 75 MG TAB PO SCH (18:09)
[2021-06-06] MEDS: SODIUM CHLORIDE 0.9% 1,000 ML IV SCH (18:09)
[2021-06-06] MEDS: ASPIRIN 81 MG PO SCH (18:09)
[2021-06-06 18:49] LABS: Hemoglobin A1C 5.5 % (4.0-6.0)
[2021-06-06 19:47] LABS: Glucose,Whole Blood 102 mg/dL (75-99)
[2021-06-06] MEDS: ATORVASTATIN 40 MG TAB PO SCH (20:29)
[2021-06-07 06:02] LABS: Glucose,Whole Blood 94 mg/dL (75-99)
[2021-06-07] MEDS: ALPRAZolam 0.25 MG TAB PO PRN ×2 (06:29→14:59)
[2021-06-07] MEDS: INSULIN ASPART (NovoLOG) 100 UNIT/ML VIAL SQ SCH ×2 (06:55→12:06)
[2021-06-07] MEDS: MIDODRINE 5 MG TAB PO SCH (08:02)
[2021-06-07] MEDS: ASPIRIN 81 MG PO SCH (08:02)
[2021-06-07] MEDS: SERTRALINE 25 MG TAB PO SCH (08:03)
[2021-06-07] MEDS: CLOPIDOGREL 75 MG TAB PO SCH (08:03)
[2021-06-07] MEDS: FAMOTIDINE 20 MG/2 ML VIAL IV SCH (08:04)
[2021-06-07] MEDS: PIOGLITAZONE 15 MG TAB PO SCH (08:07)
--- NOTE | 2021-06-07 10:11 | MR ---
EXAMINATION TYPE: MR brain wo/w con DATE OF EXAM: 06/07/2021 COMPARISON: CT brain 06/05/2021 HISTORY: CVA TECHNIQUE: Multiplanar, multisequence images of the brain and brainstem is performed without and with IV contras t, utilizing 8.5ML mL intravenous Gadavist . FINDINGS: Diffusion weighted images demonstrate no evidence of a recent infarct or other diffusion ab normality. There is no extra-axial fluid collection. Confluent and scattered periventricular, peric allosal, subcortical white matter hyperintensities are present on inversion recovery T2-weighted sequ ences, approximately 50 lesions are present The ventricular system and cisternal spaces are normal in size and appearance. The brain volume is age appropriate, there is cortical atrophy. Midline structures demonstrate normal morphology. The craniocervical junction appears within normal limits. Post contrast images demonstrate no abnormal enhancement. The dural venous sinuses appear pa tent. The visualized sinuses are clear and the globes are intact. IMPRESSION: Nonspecific white matter demyelination may be related to chronic small vessel ischemic ch thee, there is age-related atrophy
[2021-06-07 11:08] VITALS: RESP 16
--- NOTE | 2021-06-07 11:41 | P.PN ---
Subjective Progress Note Date: 06/07/21 The patient is seen at bedside and he feels he is back to baseline now. He denies off any new neurological symptoms. He notified the primary team's nurse practitioner that he seems suicidal therefore psychiatry is consulted. Objective - Vital Signs Vital signs: Vital Signs Temp 97.8 F 06/07/21 11:07 Pulse 70 06/07/21 11:07 Resp 16 06/07/21 11:07 BP 143/83 06/07/21 11:07 Pulse Ox 96 06/07/21 11:07 Intake & Output 06/06/21 06/07/21 06/07/21 18:59 06:59 18:59 Intake Total 900 240 Balance 900 240 Weight 85.7 kg Intake: Oral 900 240 Other: Voiding Method Toilet Toilet Toilet # Voids 1 1 - Exam GENERAL: The patient is lying in bed and is not in acute distress. Psych: Seems restless and agitated. NEUROLOGICAL: Higher mental function: The patient is awake, alert, oriented to self, place and time. Patient is following commands. No aphasia and no neglect. Cranial nerves: The pupils are round, equal and reactive to light and accommodation. Visual orozco are full to confrontation throughout. Extraocular movement is intact no nystagmus is noted. Facial sensation is normal to touch throughout. The facial strength is normal throughout. Hearing is normal bilaterally to hand rub. Tongue is midline and moved [id number] without any difficulty. No dysarthria is noted. Shoulder shrug is normal bilaterally. Motor: Gait is deferred. The strength is 5 over 5 throughout. Normal tone and bulk. Cerebellum: Normal finger to nose heel to persaud bilaterally. Sensation: Sensation is normal to touch throughout. Reflexes (right/left): 2+ Plantars are downgoing bilaterally. LAB/IMAGING/OTHER TESTS: Lipid panel: Is the triglyceride of 129, cholesterol 190, LDLs 124 and HDL of the 40. Hemoglobin A1c is 5.5 which is considered within normal limits. CT of the head is reported as age-related atrophic and chronic small vessel ischemic change without acute intracranial process seen at this time. CT angiography of the head and neck was reported as no significant abnormality. MR the brain is reported as nonspecific white matter demyelinating may be related to chronic small vessel ischemic change, there is age-related atrophy. 2-D echo was reported as left ventricle wall thickness is normal. Ejection fraction of 55-60%. - Labs CBC & Chem 7: 06/05/21 10:30 06/05/21 10:30 Labs: Abnormal Lab Results - Last 24 Hours (Table) 06/06/21 06/06/21 Range/Units 16:39 19:46 POC Glucose (mg/dL) 151 H 102 H (75-99) mg/dL Assessment and Plan Assessment: Transient ischemic attack (TIA) with symptoms of broca aphasia (per ED had aphasia and dysarthria) Orthostatic hypotension on midodrine (on current vitals has positive orthostatics) Suicidal ideation (that he notified his primary team) Depression GERD Plan: Continue aspirin 81mg and Plavix 75 mg daily. Patient to be on dual antiplatelets for 21 days then after that stop Plavix and continue indefinitely on aspirin. Continue Lipitor 40 mg daily at bedtime for secondary stroke pro phylaxis. And strokes LDL goal is less than 70. Every 4 hours neuro checks. On continuous cardiac monitoring PT, OT and ASSOCIATE PROFESSOR OF ENGINEERING are consulted. Consider EEG down the line if his blood pressure normalizes and continues to have syncopal episodes. Cardiology is on board for orthostatic hypotension. Pshciatry team is consulted. We'll defer the rest of the medical management to primary team. He is clear from neurological stand point. He needs to follow-up with neurologist as outpatient within 1-2 weeks as outpatient. There is no further neurological work-up. Neurology will sign off. Sravan Rosario M.D. Neuro-hospitalist Time with Patient: Less than 30
[2021-06-07 11:54] LABS: Glucose,Whole Blood 104 mg/dL (75-99)
[2021-06-07] MEDS: SODIUM CHLORIDE 0.9% 1,000 ML IV SCH (11:57)
--- NOTE | 2021-06-07 12:49 | P.PN ---
Subjective Progress Note Date: 06/07/21 HISTORY OF PRESENT ILLNESS: This is a 76-year-old male with a past medical history significant for hypotension, GERD, and depression. Patient does not follow with a infantry weapons officer. We have been asked to see the patient in consultation for syncope. Patient examined at the bedside. Patient states history morning he was in his usual state of health. He was on the phone with his son when suddenly he began having garbled speech. Patient denies having any weakness in any of his extremities. He denies any vision changes. Patient's son called the patient's daughter who came over to his house and brought him into the hospital for further evaluation. At the time of examination, the patient's speech is back to his baseline. Patient denies any chest pain or pressure. He denies shortness of breath. He denies any dizziness or lightheadedness. Patient gives a history of dizziness and lightheadedness on occasion over the past 6 months. He states this happens when he is going from a supine position to a standing position. He states about a month ago he had gotten out of bed and walk to the bathroom to urinate and he passed out and landed on the floor. Patient states he was hospitalized approximately 23 weeks ago at another facility for hypotension and was started on Midodrine at that time. Blood pressure this morning 131/69. Heart rate is in the 60s. EKG reveals sinus mechanism with no signs of acute ischemia Chest xray COPD. Coarse interstitial markings may be chronic but prior comparison is not available. Nodular opacities at the right upper lobe which is indeterminate. CT of the brain: Age-related atrophic and chronic small vessel ischemic changes without acute intracranial process Laboratory data: WBC 6.9. Hemoglobin 15.8. Platelet count 163. Sodium 132. Potassium 3.9. BUN 13. Creatinine 0.88. Troponin negative 1. Current home cardiac medications include Midodrine 2.5mg q12 hours 06/07/2021 Patient examined this morning at the bedside. Patient had orthostatic blood pressures performed yesterday which were positive. Patient is on Midodrine. Patient currently denies dizziness or lightheadedness. BP this morning is 143/83. Echocardiogram completed reveals ejection fraction 55-60%, mild aortic regurgitation, mild mitral regurgitation, and mild tricuspid regurgitation. PHYSICAL EXAM: VITAL SIGNS: Reviewed. GENERAL: Well-developed in no acute distress. HEENT: Head is normocephalic. Pupils are equal, round. Sclerae anicteric. Mucous membranes of the mouth are moist. Neck supple. No JVD or thyromegaly LUNGS: Respirations even and unlabored. Lungs essentially clear to auscultation bilaterally. HEART: Regular rate and rhythm. S1 and S2 heard. ABDOMEN: Soft. Nondistended. Nontender. EXTREMITIES: Normal range of motion. No clubbing or cyanosis. Peripheral pulses intact. No lower extremity edema NEUROLOGIC: Awake and alert. Oriented x 3. ASSESSMENT: Garbled speech, possible TIA, resolved Syncope with occasional dizziness, x 6 months Orthostatic hypotension Hypotension, recently started on Midodrine GERD Depression PLAN: Continue Midodrine Continue SHELTON hose to bilateral lower extremities Patient instructed to change positions slowly from a supine to standing position No further inpatient recommendations from a cardiac standpoint we will sign off please reconsult if needed. Nurse practitioner note has been reviewed by physician. Signing provider agrees with the documented findings, assessment, and plan of care. Objective - Vital Signs Vital signs: Vital Signs Temp 97.8 F 06/07/21 11:07 Pulse 70 06/07/21 11:07 Resp 16 06/07/21 12:37 BP 143/83 06/07/21 11:07 Pulse Ox 96 06/07/21 11:07 Intake & Output 06/06/21 06/07/21 06/07/21 18:59 06:59 18:59 Intake Total 900 540 Balance 900 540 Weight 85.7 kg Intake: Oral 900 540 Other: Voiding Method Toilet Toilet Toilet # Voids 1 1 2 - Labs CBC & Chem 7: 06/05/21 10:30 06/05/21 10:30 Labs: Abnormal Lab Results - Last 24 Hours (Table) 06/06/21 06/06/21 06/07/21 Range/Units 16:39 19:46 11:52 POC Glucose (mg/dL) 151 H 102 H 104 H (75-99) mg/dL
[2021-06-07 15:03] VITALS: BP 143/71; PULSE 80; TEMP 97.6
--- NOTE | 2021-06-07 16:11 | P.CN ---
Psychiatric Consult - . Consult date: 06/07/21 Consult:: 06/07/21 15:40 Patient was seen per consult for "Depression". Patient is here for what appears to be a TIA. Has hx of postural hypotension and is on meds. His major concerns from Psych point of view is anxiety and worrying a lot. Said he has a tendency to worry over trivial things, cannot recall words at times, has trouble in sleeping well at night. But he denies other anxiety symptoms like panic attacks and phobias. Since he started to fall down and had transient ischemic attack requiring hospitalization he is worried what he is going to do when he gets home. He feels he should not be a burden for anybody and wishes he could go away. But he insists that he does not want to kill himself. He lives by himself and is worried what will happen to him if he should have another attack of falling or TIA. He said he was started on when necessary Xanax and Zoloft for anxiety symptoms and not for depression. He had a girlfriend for about 10 years and and about 2 weeks ago they broke up. This had made him worry a little more than he was worrying when he was with her. He lives within about 2-3 miles of his sister and he thinks he may be able to stay with her for a short period of time. He denies other psychiatric symptoms. He brightened up when I informed him once he is taking aspirin and Plavix on a regular basis, it is possible that he will not have another attack of TIA. Even though his MRI of the brain shows small vessel disease, he said he can drive in the cities, does not get lost, can go to [place] and come back, and can remember most of the things that he needs to. MS: This is a white ambulatory male with good hygiene. He is polite, cheerful, friendly and cooperative. He does not show any psychomotor agitation or retardation. His speech is spontaneous relevant and goal directed. But he has some difficulty in getting the right word at times which was described as aphasia by the neurologist. This often happens when people get anxious, have underlying anxiety or tired. His mood is cheerful and affect is appropriate. I did not see any tremors of the hands are sweaty palms. His respiratory rate and pulse rate are within normal limits. He denies hallucinations and delusional t hinking. He insists that he is not going to do anything to hurt himself and does not want to kill himself. He denies homicidal thoughts also. He is oriented and is able to provide fairly good history. His memory appears to be grossly intact. He was advised to have somebody to stay with him at least for a while so that he can be taken care of if anything like this happens again in the future. He readily agreed with this advice. Assessment: He has denied symptoms of depression and thoughts/plans of killing himself. I don't have any reason not to believe him. Recommendation: As the patient and I agreed, it will be better if he can be with somebody at least for a week or 2 to make sure he does not have any further TIA and health problems. He can be discharged when he is medically cleared with the recommendation that he stays with somebody at least for a week or 2.
--- NOTE | 2021-06-07 16:24 | P.DS ---
Providers Date of admission: 06/05/21 11:56 Expected date of discharge: 06/07/21 Attending physician: Antonina Leonard Consults: 06/05/21 11:52 Consult Physician Routine Consulting Provider: Sravan Rosario Consult Reason/Comments: stroke symptoms Do you want consulting provider notified?: Yes 06/05/21 11:53 Consult Physician Routine Consulting Provider: Eitan Leyva Consult Reason/Comments: syncope, presyncope Do you want consulting provider notified?: Yes 06/06/21 10:03 Consult Physician Urgent Consulting Provider: Nuno Talavera Consult Reason/Comments: DEPRESSION Do you want consulting provider notified?: Already Contacted Primary care physician: Raj Kaur MD Hospital Course: HISTORY OF PRESENT ILLNESS This is a 76-year-old pleasant gentleman patient of Dr. Kaur, with underlying history of diabetes hypertension, coming in to emergency room secondary to acute strokelike symptoms. Patient lives alone at home independent, for which family members is in close by assistance, according to family members, the son called him at around 8:30 in the morning, and patient was found to have difficulty in speaking, has speech arrest. and was confused. The sister went to the patient's house, and was brought in by the family members to the emergency room. It is unknown when the last normal neurologic symptoms was of the patient, patient denies any headache, no head trauma, no cough, no fever no chills, patient does not drink alcohol, no new medication changes by PCP. apparently he had a syncopal event 2.5 wks ago, at that time bp was 65/35 standing, his pcp started him on midodrin. pt has hyperglycemia, was suppose to have started on acarbose but did not get to start it, pt refused. pateint was not on routine asa at home, not on statin, patient quit statin long time ago He was seen in the emergency room with code stroke, it was discussed with neurology, Dr. Robertson with the ER physician, who does not recommend TPA admi nistration. CT of the brain and CTA of the neck was done, has mild plaques on bilateral, and and internal carotid artery, patent left vertebral artery, no significant diameter reduction to account for patient's symptoms CT of the brain shows chronic small vessel ischemia without any acute changes. NIH score was 2 patient is admitted, consult PT OT, neurology, pt was seen in the er myself, now with spontaneous rapid speech, no dysarrthria has memory loss short term, and no diplopia or headache, no gross motor abnormalities, no seizure history as per patient, he has lowering of blood pressure whenever he eats, but he did not really realize that is related to standing position rather than full. There is no diarrhea, no stool or urine incontinence, 06/06: He has been seen by cardiology and resumed managing, hold for systolic blood pressure greater than 140. Orthostatic vital signs to be checked and continue cardiac monitoring. Echocardiogram reveals EF of 55-60%, mild aortic regurgitation, mild mitral regurgitation, mild tricuspid regurgitation. She has also been seen by neurology with plan for and MRI of the brain and possible EEG. Recommendations for aspirin 81 mg daily and Plavix 75 mg daily. Patient is to be on dual antiplatelet therapy for 21 days and then stop Plavix and continue indefinitely on aspirin. Patient is also been started on Lipitor 40 mg daily at bedtime for secondary stroke prophylaxis. Hemoglobin A1c is pending. Cortisol level this morning was 16. Patient verbalized depression and suicidal thoughts this morning has been resumed on Zoloft and consult placed with psychiatry. 06/07: Patient has been seen by psychiatry today and states that patient is denying any depression or suicidal thoughts and has cleared the patient for discharge. Patient underwent MRI of the brain which revealed nonspecific white matter demyelination may be related to chronic small vessel ischemic change. There is age-related atrophy. Patient will be discharged home today in stable condition. ASSESSMENT AND PLAN 1. Acute transient boca aphasia, TIA. 2. Neurocardiogenic syncope without anomic dysfunction, with significant blood pressure dropped during standing, causing a recent syncope 2 weeks ago. C 3. Diabetes mellitus type II. 4. Dysthymia, recurrent depression with suicidal ideation. 5. Current tobacco use and dependence. 6. Hypertension. 7. Impaired balance and gait, with fear of falling DISCHARGE PLAN Home with [facility] Impression and plan of care have been directed as dictated by the signing physician. Rhiannon Mars nurse practitioner acting as scribe for signing physician. Patient Condition at Discharge: Stable Plan - Discharge Summary Discharge Rx Participant: No New Discharge Prescriptions: New Atorvastatin [Lipitor] 40 mg PO HS #30 tab Clopidogrel [Plavix] 75 mg PO DAILY #30 tab Aspirin 81 mg PO DAILY chew Memantine HCl [Namenda] 5 mg PO DAILY #30 tab Continue Omeprazole [PriLOSEC] 20 mg PO DAILY PRN PRN Reason: GERD Sertraline [Zoloft] 25 mg PO DAILY Changed Midodrine [ProAmatine] 5 mg PO AC-TID #0 Discharge Medication List Omeprazole [PriLOSEC] 20 mg PO DAILY PRN 06/05/21 [History] Sertraline [Zoloft] 25 mg PO DAILY 06/05/21 [History] Aspirin 81 mg PO DAILY chew 06/07/21 [Rx] Atorvastatin [Lipitor] 40 mg PO HS #30 tab 06/07/21 [Rx] Clopidogrel [Plavix] 75 mg PO DAILY #30 tab 06/07/21 [Rx] Memantine HCl [Namenda] 5 mg PO DAILY #30 tab 06/07/21 [Rx] Midodrine [ProAmatine] 5 mg PO AC-TID #0 06/07/21 [Rx] Follow up Appointment(s)/Referral(s): [facility], [NON-STAFF] - [facility] [NON-STAFF] - Raj Kaur MD [Primary Care Provider] - 1 Week Patient Instructions/Handouts: Transient Ischemic Attack (DC), Self Care Measures After a Stroke (DC), Hypotension (DC), Syncope in Older Adults (DC) Activity/Diet/Wound Care/Special Instructions: [employer] store in [place] will deliver groceries - [phone] Contact [facility] to sign up for Meals on Wheels; they can provide transportation assistance as well [facility] information - [phone] Ext [phone] Outpatient Counseling, Community Resource, Help in the Home list are included with discharge instructions. Discharge/Stand Alone Forms: Who Do I Call?, Community Resources, Help In The Home, Outpatient Counseling Discharge Disposition: HOME WITH HOME HEALTH SERVICES
== END 2021-06-07 16:05 | disposition home health service (06) | DRG 69 ==
LOC: EC 10:04 → SUPCPDRO 10:04 → 3SCARD 11:56
PROVIDERS: ADMIT Family Medicine; ATTEND Family Medicine
DX: G45.9 Transient cerebral ischemic attack, unspecified (principal); R47.01 Aphasia; R45.851 Suicidal ideations; F33.9 Major depressive disorder, recurrent, unspecified; I95.9 Hypotension, unspecified; K21.9 Gastro-esophageal reflux disease without esophagitis; E11.9 Type 2 diabetes mellitus without complications; R47.1 Dysarthria and anarthria; I95.1 Orthostatic hypotension; E11.65 Type 2 diabetes mellitus with hyperglycemia; F34.1 Dysthymic disorder; R29.702 NIHSS score 2; I10 Essential (primary) hypertension; F17.200 Nicotine dependence, unspecified, uncomplicated; F41.9 Anxiety disorder, unspecified; R42 Dizziness and giddiness; Z79.02 Long term (current) use of antithrombotics/antiplatelets; Z79.82 Long term (current) use of aspirin; Z79.899 Other long term (current) drug therapy
CPT/HCPCS: 36415; 70450; 70496; 70498; 70553; 71046; 80053; 80061; 82533; 83036; 84484; 85025; 85610; 85730; 93005; 93306; 94760; 96360; 96361; 99285

== ENCOUNTER 2025-03-21 09:19 | Emergency (ER) | payer MEDICARE ==
[2025-03-21 09:26] VITALS: BP 150/70; PULSE 91; RESP 18; TEMP 97.8
--- NOTE | 2025-03-21 09:55 | ED ---
General Adult HPI - General Chief complaint: Abdominal Pain Stated complaint: constipation Time Seen by Provider: 03/21/25 09:25 Source: patient, RN notes reviewed, old records reviewed Mode of arrival: ambulatory Limitations: no limitations - History of Present Illness Initial comments: This is an 80-year-old male who presents to the emergency department stating he has not had a bowel movement 4 to 5 days. Patient states just prior to that he was having diarrhea and then once that stopped 5 days ago he has been constipated ever since. Patient states he has taken a suppository did not work. Patient states he also took milk of magnesia and though he went a little it was not normal. Patient denies any abdominal pain. Patient denies any back pain. Patient has any fever or chills. - Related Data Home Medications Medication Instructions Recorded Confirmed Omeprazole [PriLOSEC] 20 mg PO DAILY PRN 06/05/21 06/05/21 Sertraline [Zoloft] 25 mg PO DAILY 06/05/21 06/05/21 Previous Rx's Medication Instructions Recorded Aspirin 81 mg PO DAILY chew 06/07/21 Atorvastatin [Lipitor] 40 mg PO HS #30 tab 06/07/21 Clopidogrel [Plavix] 75 mg PO DAILY #30 tab 06/07/21 Memantine HCl [Namenda] 5 mg PO DAILY #30 tab 06/07/21 Midodrine [ProAmatine] 5 mg PO AC-TID #0 06/07/21 Allergies Allergy/AdvReac Type Severity Reaction Status Date / Time No Known Allergies Allergy Verified 03/21/25 09:26 Review of Systems ROS Statement: Those systems with pertinent positive or pertinent negative responses have been documented in the HPI. ROS Other: All systems not noted in ROS Statement are negative. Past Medical History Past Medical History: Diabetes Mellitus Additional Past Medical History / Comment(s): hypotension- couple weeks ago History of Any Multi-Drug Resistant Organisms: None Reported Past Surgical History: No Surgical Hx Reported Past Anesthesia/Blood Transfusion Reactions: No Reported Reaction Past Psychological History: Anxiety, Depression Smoking Status: Never smoker Past Alcohol Use History: None Reported Past Drug Use History: None Reported General Exam - General Exam Comments Initial Comments: GENERAL: Patient is well-developed and well-nourished. Patient is nontoxic and well- hydrated and is in no acute distress. ENT: Neck is soft and supple. No significant lymphadenopathy is noted. Oropharynx is clear. Moist mucous membranes. Neck has full range of motion without eliciting any pain. EYES: The sclera were anicteric and conjunctiva were pink and moist. Extraocular movements were intact and pupils were equal round and reactive to light. Eyelids were unremarkable. PULMONARY: Unlabored respirations. Good breath sounds bilaterally. No audible rales rhonchi or wheezing was noted. CARDIOVASCULAR: There is a regular rate and rhythm without any murmurs gallops or rubs. ABDOMEN: Soft and nontender with normal bowel sounds. SKIN: Skin is clear with no lesions or rashes and otherwise unremarkable. NEUROLOGIC: Patient is alert and oriented x3. Cranial nerves II through XII are grossly intact. Motor and sensory are also intact. Normal speech, volume and content. Symmetrical smile. MUSCULOSKELETAL: Normal extremities with adequate strength and full range of motion. LYMPHATICS: No significant lymphadenopathy is noted PSYCHIATRIC: Normal psychiatric evaluation. Limitations: no limitations Course Vital Signs 03/21/25 09:22 Temperature 97.8 F Pulse Rate 91 Respiratory 18 Rate Blood Pressure 150/70 O2 Sat by Pulse 99 Oximetry Medical Decision Making - Medical Decision Making Was pt. sent in by a medical professional or institution (, PA, SONAR TECHNICIAN, urgent care, hospital, or snf...) When possible be specific @ -No Did you speak to anyone other than the patient for history (EMS, parent, family, police, friend...)? What history was obtained from this source @ -No Did you review nursing and triage notes (agree or disagree)? Why? @ -I reviewed and agree with nursing and triage notes Were old charts reviewed (outside hosp., previous admission, EMS record, old EKG, old radiological studies, urgent care reports/EKG's, snf records)? Report findings @ -No old charts were reviewed Differential Diagnosis? @ -Differential Abdominal Pain Men: Appendicitis, cholecystitis, diverticulosis, ischemic bowel, pancreatitis, hepatitis, UTI, gastroenteritis, AAA, incarcerated hernia, bowel obstruction, constipation, inflammatory bowel, hepatitis, peptic ulcer disease, splenic infarction, perforated viscus, testicular torsion, this is not meant to be an all-inclusive list EKG interpreted by me (3pts min.). @ -As above X-rays interpreted by me (1pt min.). @ -KUB shows some moderate constipation CT interpreted by me (1pt min.). @ -None done U/S interpreted by me (1pt. min.). @ -None done What testing was considered but not performed or refused? (CT, X-rays, U/S, labs)? Why? @ -None What meds were considered but not given or refused? Why? @ -None Did you discuss the management of the patient with other professionals (professionals i.e. DrTyler, PA, SONAR TECHNICIAN, lab, RT, psych nurse, social work manager, senior systems engineer, teacher, safety and security officer, correctional counselor/case manager)? Give summary @ -No Was smoking cessation discussed for >3mins.? @ -No Was critical care preformed (if so, how long)? @ -No Were there social determinants of health that impacted care today? How? (Ho melessness, low income, unemployed, alcoholism, drug addiction, transportation, low edu. Level, literacy, decrease access to med. care, fpc, rehab)? @ -No Was there de-escalation of care discussed even if they declined (Discuss DNR or withdrawal of care, Hospice)? DNR status @ -No What co-morbidities impacted this encounter? (DM, HTN, Smoking, COPD, CAD, Cancer, CVA, ARF, Chemo, Hep., AIDS, mental health diagnosis, sleep apnea, morbid obesity)? @ -None Was patient admitted / discharged? Hospital course, mention meds given and route, prescriptions, significant lab abnormalities, going to OR and other pertinent info. @ -Patient received an enema in the emergency department had some good success and wanted to be discharged home Undiagnosed new problem with uncertain prognosis? @ -No Drug Therapy requiring intensive monitoring for toxicity (Heparin, Nitro, Insulin, Cardizem)? @ -No Were any procedures done? @ -No Diagnosis/symptom? @ -Constipation Acute, or Chronic, or Acute on Chronic? @ -Acute Uncomplicated (without systemic symptoms) or Complicated (systemic symptoms)? @ -Default Side effects of treatment? @ -No Exacerbation, Progression, or Severe Exacerbation? @ -No Poses a threat to life or bodily function? How? (Chest pain, USA, MS, pneumonia, PE, COPD, DKA, ARF, appy, cholecystitis, CVA, Diverticulitis, Homicidal, Suicidal, threat to staff... and all critical care pts) @ -No Disposition Clinical Impression: Constipation Disposition: HOME SELF-CARE Condition: Good Instructions (If sedation given, give patient instructions): High Fiber Diet (ED), Constipation (ED) Is patient prescribed a controlled substance at d/c from ED?: No Referrals: Rafa Nair [Primary Care Provider] - 1-2 days Time of Disposition: 11:44
--- NOTE | 2025-03-21 10:55 | XR ---
EXAMINATION TYPE: XR KUB DATE OF EXAM: 03/21/2025 10:28 AM COMPARISON: None CLINICAL INDICATION: Male, 80 years old with history of Abdominal discomfort; [facility] TECHNIQUE: One radiographic view of the abdomen was obtained. FINDINGS: The bowel gas pattern is nonspecific without dilated loops of small or large bowel. . Fecal material and gas are demonstrated throughout the colon and rectum. There is no evidence for organome rancho or pneumoperitoneum. Degeneration changes of the spine. No acute osseous process. No abnormal calcifications are present. Brachytherapy beads suggested in the expected location of the prostate gl and. IMPRESSION: Nonspecific bowel gas pattern without radiographic evidence for acute process. [facility], , 03/21/2025 10:52 AM
== END 2025-03-21 11:54 | disposition home or self-care (01) ==
LOC: EC 09:19
DX: K59.00 Constipation, unspecified (principal)
CPT/HCPCS: 74018; 99284